=== PATIENT | female | born 1960 | race American Indian/Alaskan Native ===

== ENCOUNTER 2019-05-14 14:11 | Inpatient (IN) | payer BC ==
[2019-05-14] MEDS ORDERED: SODIUM CHLORIDE 0.9% 1000 ML 1,000 ML IV ONE ×2 (14:39→15:54)
[2019-05-14] MEDS ORDERED: ONDANSETRON 4 MG/2 ML INJ IV ONE (14:39)
[2019-05-14 15:05] LABS: Hematocrit 49.1 % (30.3-42.9); Mean Corpuscular HGB Conc 33 % (30-34); Mean Corpuscular Volume 84 fl (79-97); Platelet Count 261 K/mm3 (140-440); Red Blood Count 5.87 M/mm3 (3.65-5.03); Red Cell Distribution Width 15.5 % (13.2-15.2)
--- NOTE | 2019-05-14 15:09 | Emergency Department Report ---
ED General Adult HPI - General Chief complaint: Extremity Injury, Upper Stated complaint: PAIN IN RT HAND/UPSET STOMACH Time Seen by Provider: 05/14/19 14:38 Source: patient Mode of arrival: Ambulatory Limitations: No Limitations, Language Barrier - History of Present Illness Initial comments: Patient is a 58-year-old -L[place]ian female who is presenting with nausea vomiting for the past week. Patient states that she has been unable to keep much down for the last week. Patient states at this point she started to get hand cramping and some hiccups as well. Patient states the nausea and vomiting she has some dry heaves. Patient states unable to keep down her blood pressure medications or her medications for diabetes. - Related Data Allergies Allergy/AdvReac Type Severity Reaction Status Date / Time No Known Allergies Allergy Unverified 05/14/19 14:16 ED Review of Systems ROS: Stated complaint: PAIN IN RT HAND/UPSET STOMACH Other details as noted in HPI Comment: All other systems reviewed and negative ED Past Medical Hx - Past Medical History Hx Diabetes: Yes Additional medical history: hyperlipidemia - Surgical History Past Surgical History?: Yes Additional Surgical History: hysterectomy - Social History Smoking Status: Never Smoker Substance Use Type: Alcohol ED Physical Exam - General Limitations: No Limitations, Language Barrier General appearance: alert, in no apparent distress - Head Head exam: Present: atraumatic, normocephalic - Eye Eye exam: Present: normal appearance, PERRL, EOMI - ENT ENT exam: Present: mucous membranes moist - Neck Neck exam: Present: normal inspection - Respiratory Respiratory exam: Present: normal lung sounds bilaterally. Absent: respiratory distress, wheezes, rales, rhonchi - Cardiovascular Cardiovascular Exam: Present: regular rate, normal rhythm, normal heart sounds. Absent: systolic murmur, diastolic murmur, rubs, gallop - GI/Abdominal GI/Abdominal exam: Present: soft, normal bowel sounds. Absent: distended, tenderness, guarding, rebound, rigid - Extremities Exam Extremities exam: Present: normal inspection - Back Exam Back exam: Present: normal inspection - Neurological Exam Neurological exam: Present: alert, oriented X3 - Psychiatric Psychiatric exam: Present: normal affect, normal mood - Skin Skin exam: Present: warm, dry, intact, normal color. Absent: rash ED Course Vital Signs 05/14/19 05/14/19 14:21 15:10 Temperature 98.0 F Pulse Rate 60 125 H Respiratory 16 21 Rate Blood Pressure 152/113 Blood Pressure 137/93 [Left] O2 Sat by Pulse 100 100 Oximetry ED Medical Decision Making - Lab Data Result diagrams: 05/14/19 14:45 05/14/19 14:45 Lab Results 05/14/19 05/14/19 05/14/19 Range/Units 14:28 14:45 14:45 WBC 7.6 (4.5-11.0) K/mm3 RBC 5.87 H (3.65-5.03) M/mm3 Hgb 16.0 H (10.1-14.3) gm/dl Hct 49.1 H (30.3-42.9) % MCV 84 (79-97) fl MCH 27 L (28-32) pg MCHC 33 (30-34) % RDW 15.5 H (13.2-15.2) % Plt Count 261 (140-440) K/mm3 VBG pH (7.320-7.420) Carbon Dioxide 12 L (22-30) mmol/L BUN 10 (7-17) mg/dL Creatinine 1.1 (0.7-1.2) mg/dL Estimated GFR > 60 ml/min BUN/Creatinine Ratio 9 % Glucose 500 H (65-100) mg/dL POC Glucose 366 H (70-105) Calcium 9.8 (8.4-10.2) mg/dL Total Bilirubin 0.40 (0.1-1.2) mg/dL AST 35 (5-40) units/L ALT 46 (7-56) units/L Alkaline Phosphatase 180 H (35-129) units/L Total Protein 8.6 H (6.3-8.2) g/dL Albumin 4.3 (3.9-5) g/dL Albumin/Globulin Ratio 1.0 % Lipase (13-60) units/L 05/14/19 05/14/19 Range/Units 14:45 15:28 WBC (4.5-11.0) K/mm3 RBC (3.65-5.03) M/mm3 Hgb (10.1-14.3) gm/dl Hct (30.3-42.9) % MCV (79-97) fl MCH (28-32) pg MCHC (30-34) % RDW (13.2-15.2) % Plt Count (140-440) K/mm3 VBG pH 7.226 L (7.320-7.420) Carbon Dioxide (22-30) mmol/L BUN (7-17) mg/dL Creatinine (0.7-1.2) mg/dL Estimated GFR ml/min BUN/Creatinine Ratio % Glucose (65-100) mg/dL POC Glucose (70-105) Calcium (8.4-10.2) mg/dL Total Bilirubin (0.1-1.2) mg/dL AST (5-40) units/L ALT (7-56) units/L Alkaline Phosphatase (35-129) units/L Total Protein (6.3-8.2) g/dL Albumin (3.9-5) g/dL Albumin/Globulin Ratio % Lipase 35 (13-60) units/L Anion gap 29 Na 135 K 3.4 Cl 97.2 - Medical Decision Making Patient with NV and weakness for a week. Patient noted to have early DKA. Started on IV hydration and an insulin drip Critical Care Time: Yes (30) Critical care attestation.: If time is entered above; I have spent that time in minutes in the direct care of this critically ill patient, excluding procedure time. ED Disposition Clinical Impression: Diabetic ketoacidosis Qualifiers: Diabetes mellitus type: type 2 Diabetes mellitus complication detail: without c jin Qualified Code(s): E11.10 - Type 2 diabetes mellitus with ketoacidosis without coma Disposition: 09 OP ADMIT IP TO THIS HOSP Is pt being admited?: Yes Does the pt Need Aspirin: No Condition: Stable Instructions: Diabetic Ketoacidosis (ED) Time of Disposition: 15:59
[2019-05-14 15:13] LABS: Alanine Aminotransferase 46 units/L (7-56); Albumin 4.3 g/dL (3.9-5); BUN/Creatinine Ratio 9; Blood Urea Nitrogen 10 mg/dL (7-17); Calcium 9.8 mg/dL (8.4-10.2); Hemolysis Index 5
[2019-05-14 15:57] LABS: Eosinophils % (Manual) 0 % (0.0-4.3); Giant Platelets 1+; RBC Morphology Normal; Total Cells Counted 100
--- NOTE | 2019-05-14 16:01 | History and Physical Report ---
History of Present Illness Chief complaint: I feel sick History of present illness: 58 YO Female with DM, HLD, presents to ED for evaluation. Pt states that she has experienced nausea, multiple episodes of vomiting over the past 1 week with worsening symptoms over the past 2 days. Pt reports inability to tolerate oral diet or medications by mouth. Pt acknowledges polyuria. Pt transported to [facility] via private vehicle. Pt seen and evaluated in ED and found to have DKA. Pt initiated on DKA protocol and admitted to ICU. Pt denies fever, chills, CP, Palpitations, Trauma, BRBPR, Productive cough, Skin rash, or recent ill contacts. No prior admission for review. No medication listed for reconciliation at time of admission. Past History Past Medical History: diabetes Past Surgical History: No surgical history, Other (reviewed) Social history: , lives with family. denies: smoking, alcohol abuse, prescription drug abuse Family history: diabetes, hypertension Medications and Allergies Allergies Allergy/AdvReac Type Severity Reaction Status Date / Time No Known Allergies Allergy Unverified 05/14/19 14:16 Active Meds: Active Medications Insulin Human Regular 100 (units/ Sodium Chloride) 100 mls @ 1 mls/hr IV TITR MYRA; Protocol Sodium Chloride (Nacl 0.9% 1000 Ml) 1,000 mls @ 999 mls/hr IV BOLUS ONE Stop: 05/14/19 16:54 Review of Systems Constitutional: no weight loss, no weight gain, no fever, no chills Ears, nose, mouth and throat: no ear pain, no ear discharge, no decreased hearing, no nose pain, no nasal discharge, no sinus pressure Breasts: no change in shape, no swelling Cardiovascular: no chest pain, no orthopnea, no palpitations, no rapid/irregular heart beat, no syncope, no lightheadedness Respiratory: no cough, no cough with sputum, no hemoptysis, no shortness of breath Gastrointestinal: nausea, vomiting, no abdominal pain, no hematemesis, no coffee ground emesis, no melena, no loss of appetite, no indigestion Genitourinary Female: no pelvic pain, no flank pain, no menorrhagia, no urinary frequency, no urgency Rectal: no pain, no incontinence Musculoskeletal: no neck stiffness, no neck pain, no shooting arm pain, no low back pain, no shooting leg pain, no leg numbness/tingling Integumentary: no rash, no pruritis, no redness, no sores, no wounds Neurological: no transient paralysis, no paralysis, no weakness, no numbness, no tingling, no seizures Psychiatric: no anxiety, no memory loss, no change in sleep habits, no sleep disturbances, no insomnia, no change in appetite, no change in libido, no suicidal ideation Endocrine: excessive thirst, polyuria, high blood sugars, no cold intolerance, no heat intolerance, no polyphagia Hematologic/Lymphatic: no easy bruising, no easy bleeding, no lymphadenopathy, no lymphedema Allergic/Immunologic: no urticaria, no allergic rhinitis, no anaphylaxis Exam - Constitutional Vitals: Temp Pulse Resp BP Pulse Ox 98.0 F 125 H 21 137/93 100 05/14/19 14:21 05/14/19 15:10 05/14/19 15:10 05/14/19 15:10 05/14/19 15:10 General appearance: Present: mild distress - EENT Eyes: Present: PERRL ENT: hearing intact, clear oral mucosa - Neck Neck: Present: supple, normal ROM - Respiratory Respiratory effort: normal Respiratory: bilateral: CTA - Cardiovascular Heart Sounds: Present: S1 & S2. Absent: rub, click - Extremities Extremities: pulses symmetrical, No edema Peripheral Pulses: within normal limits - Abdominal General gastrointestinal: Present: soft, non-tender, non-distended, normal bowel sounds Female genitourinary: Present: normal - Integumentary Integumentary: Present: clear, warm, dry - Musculoskeletal Musculoskeletal: gait normal, strength equal bilaterally - Psychiatric Psychiatric: appropriate mood/affect, intact judgment & insight - Neurologic Neurologic: CNII-XII intact, moves all extremities Results - Labs CBC & Chem 7: 05/14/19 14:45 05/14/19 14:45 Labs: Abnormal lab results 05/14/19 05/14/19 05/14/19 Range/Units 14:28 14:45 14:45 RBC 5.87 H (3.65-5.03) M/mm3 Hgb 16.0 H (10.1-14.3) gm/dl Hct 49.1 H (30.3-42.9) % MCH 27 L (28-32) pg RDW 15.5 H (13.2-15.2) % Monocytes % (Manual) 11.0 H (0.0-7.3) % VBG pH (7.320-7.420) Carbon Dioxide 12 L (22-30) mmol/L Glucose 500 H (65-100) mg/dL POC Glucose 366 H (70-105) Alkaline Phosphatase 180 H (35-129) units/L Total Protein 8.6 H (6.3-8.2) g/dL 05/14/19 Range/Units 15:28 RBC (3.65-5.03) M/mm3 Hgb (10.1-14.3) gm/dl Hct (30.3-42.9) % MCH (28-32) pg RDW (13.2-15.2) % Monocytes % (Manual) (0.0-7.3) % VBG pH 7.226 L (7.320-7.420) Carbon Dioxide (22-30) mmol/L Glucose (65-100) mg/dL POC Glucose (70-105) Alkaline Phosphatase (35-129) units/L Total Protein (6.3-8.2) g/dL Assessment and Plan - Patient Problems (1) Diabetic ketoacidosis Current Visit: No Status: Acute Qualifiers: Diabetes mellitus type: type 2 Diabetes mellitus complication detail: without coma Qualified Code(s): E11.10 - Type 2 diabetes mellitus with ketoacidosis without coma Plan to address problem: Admit to ICU, DKA Protocol: Insulin drip, IVF resuscitation therapy, serial bmp, monitor anion gap, monitor serum potassium, The high probability of a clinically significant, sudden or life threatening deterioration of the [Endocrine, neuro] system(s) required my full and direct attention, intervention and personal management. The aggregate critical care time was [65] minutes. This time is in addition to time spent performing reported procedures but includes the following: [x] Data Review and interpretation [x] Patient assessment and monitoring of vital signs [x] Documentation [x] Medication orders and management (2) Metabolic acidosis Current Visit: Yes Status: Acute Plan to address problem: IVF resuscitation therapy, Iv bicarbonate therapy, repeat bmp (3) HLD (hyperlipidemia) Current Visit: Yes Status: Acute Qualifiers: Hyperlipidemia type: mixed hyperlipidemia Qualified Code(s): E78.2 - Mixed hyperlipidemia Plan to address problem: low fat, low cholesterol diet (4) DVT prophylaxis Current Visit: Yes Status: Acute Plan to address problem: SCD to BLE while in bed.
[2019-05-14] MEDS ORDERED: SODIUM CHLORIDE 0.9% 1000 ML 1,000 ML IV SCH (17:00)
[2019-05-14] MEDS ORDERED: SODIUM BICARB 8.4% 50 MEQ/50 ML SYRINGE IV ONE (17:00)
[2019-05-14] MEDS: INSULIN REGULAR, HUMAN 100 UNITS in SODIUM CHLORIDE 0.9% 99 ML IV SCH (18:19)
[2019-05-14 22:03] LABS: BUN/Creatinine Ratio 10; Blood Urea Nitrogen 8 mg/dL (7-17); Calcium 8.9 mg/dL (8.4-10.2); Hemolysis Index 9
[2019-05-14] MEDS: D5W/0.45% NACL/KCL 20 MEQ 20 MEQ/1,000 ML BAG IV SCH (22:04)
[2019-05-14] MEDS ORDERED: D5W/0.45% NACL/KCL 20 MEQ 20 MEQ/1,000 ML BAG IV ONE (22:04)
[2019-05-15 04:02] LABS: BUN/Creatinine Ratio 10; Blood Urea Nitrogen 7 mg/dL (7-17); Calcium 8.7 mg/dL (8.4-10.2); Hemolysis Index 8
[2019-05-15] MEDS: D5W/0.45% NACL/KCL 20 MEQ 20 MEQ/1,000 ML BAG IV SCH ×2 (06:15→21:38)
--- NOTE | 2019-05-15 09:32 | Progress Note ---
Assessment and Plan Assessment and plan: Patient is a 58 YO Female with DM, HLD, presents to ED for evaluation. Pt states that she has experienced nausea, multiple episodes of vomiting over the past 1 week with worsening symptoms over the past 2 days. Pt reports inability to tolerate oral diet or medications by mouth. Pt acknowledges polyuria. Pt transported to [facility] via private vehicle. Pt seen and evaluated in ED and found to have DKA. Pt initiated on DKA protocol and admitted to ICU. Pt denies fever, chills, CP, Palpitations, Trauma, BRBPR, Productive cough, Skin rash, or recent ill contacts. No prior admission for review. No medication listed for reconciliation at time of admission. -Diabetic ketoacidosis: treat with IVF, insulin drip -UTI with sepsis, poa: treat with IV abx due to the nausea and inability to tolerate food, follow up urine culture -Nausea/Vomiting, off and on for 2 weeks, has not been taking oral Diabetic medication due to worsening nausea -Metabolic acidosis IVF resuscitation therapy, Iv bicarbonate therapy, repeat bmp -HLD (hyperlipidemia) low fat, low cholesterol diet -DVT prophylaxis: add sq lovenox -Hypokalemia: replace in IVF,monitor bmp closely full code Disposition: continue inpatient care, await repeat BMP, possible transition off insulin drip if Anion gap has closed CCT 33 minutes History Interval history: Patient was seen and examined. Follow-up on current diagnosis of DKA. No overnight events reported to me. Patient denies any chest pain, shortness breath, or severe headaches. Imaging, nursing note, chart, labs and old chart reviewed. Discussed with patient. +Nausea w/o vomiting or pains. Daughter Keira Hospitalist Physical - Physical exam Narrative exam: Gen: WDWN, NAD, Awake, Alert, Orientated HEENT: NCAT, EOM==> left eye outward, PERRL, OP Clear Neck: supple, no adenopathy, no thyromegaly, no JVD CVS/Heart: RRR, normal S1S2, pulses present bilaterally Chest/Lungs: CTA B, Symmetrical chest expansion, good air entry bilaterally GI/Abdomen: soft, NTND, good bowel sounds, no guarding or rebound /Bladder: no suprapubic tenderness, no CVA or paraspinal tenderness Extermity/Skin: no c/c/e, no obvious rash MSK: FROM x 4 Neuro: CN 2-12 grossly intact, no new focal deficits Psych: calm - Constitutional Vitals: Temp Pulse Resp BP Pulse Ox 98.0 F 81 14 105/66 98 05/14/19 14:21 05/15/19 07:24 05/15/19 07:24 05/15/19 07:24 05/15/19 07:24 Results - Labs CBC & Chem 7: 05/14/19 14:45 05/15/19 03:22 Labs: Laboratory Last Values WBC 7.6 K/mm3 (4.5-11.0) 05/14/19 14:45 RBC 5.87 M/mm3 (3.65-5.03) H 05/14/19 14:45 Hgb 16.0 gm/dl (10.1-14.3) H 05/14/19 14:45 Hct 49.1 % (30.3-42.9) H 05/14/19 14:45 MCV 84 fl (79-97) 05/14/19 14:45 MCH 27 pg (28-32) L 05/14/19 14:45 MCHC 33 % (30-34) 05/14/19 14:45 RDW 15.5 % (13.2-15.2) H 05/14/19 14:45 Plt Count 261 K/mm3 (140-440) 05/14/19 14:45 Add Manual Diff Complete 05/14/19 14:45 Total Counted 100 05/14/19 14:45 Seg Neuts % (Manual) 54.0 % (40.0-70.0) 05/14/19 14:45 Band Neutrophils % 0 % 05/14/19 14:45 Lymphocytes % (Manual) 34.0 % (13.4-35.0) 05/14/19 14:45 Reactive Lymphs % (Man) 0 % 05/14/19 14:45 Monocytes % (Manual) 11.0 % (0.0-7.3) H 05/14/19 14:45 Eosinophils % (Manual) 0 % (0.0-4.3) 05/14/19 14:45 Basophils % (Manual) 1.0 % (0.0-1.8) 05/14/19 14:45 Metamyelocytes % 0 % 05/14/19 14:45 Myelocytes % 0 % 05/14/19 14:45 Promyelocytes % 0 % 05/14/19 14:45 Blast Cells % 0 % 05/14/19 14:45 Nucleated RBC % Not Reportable 05/14/19 14:45 Seg Neutrophils # Man 4.1 K/mm3 (1.8-7.7) 05/14/19 14:45 Band Neutrophils # 0.0 K/mm3 05/14/19 14:45 Lymphocytes # (Manual) 2.6 K/mm3 (1.2-5.4) 05/14/19 14:45 Abs React Lymphs (Man) 0.0 K/mm3 05/14/19 14:45 Monocytes # (Manual) 0.8 K/mm3 (0.0-0.8) 05/14/19 14:45 Eosinophils # (Manual) 0.0 K/mm3 (0.0-0.4) 05/14/19 14:45 Basophils # (Manual) 0.1 K/mm3 (0.0-0.1) 05/14/19 14:45 Metamyelocytes # 0.0 K/mm3 05/14/19 14:45 Myelocytes # 0.0 K/mm3 05/14/19 14:45 Promyelocytes # 0.0 K/mm3 05/14/19 14:45 Blast Cells # 0.0 K/mm3 05/14/19 14:45 WBC Morphology Not Reportable 05/14/19 14:45 Hypersegmented Neuts Not Reportable 05/14/19 14:45 Hyposegmented Neuts Not Reportable 05/14/19 14:45 Hypogranular Neuts Not Reportable 05/14/19 14:45 Smudge Cells Not Reportable 05/14/19 14:45 Toxic Granulation Not Reportable 05/14/19 14:45 Toxic Vacuolation Not Reportable 05/14/19 14:45 Dohle Bodies Not Reportable 05/14/19 14:45 Pelger-Huet Anomaly Not Reportable 05/14/19 14:45 Ezra Rods Not Reportable 05/14/19 14:45 Platelet Estimate Not Reportable 05/14/19 14:45 Clumped Platelets Not Reportable 05/14/19 14:45 Plt Clumps, EDTA Not Reportable 05/14/19 14:45 Large Platelets Not Reportable 05/14/19 14:45 Giant Platelets 1+ 05/14/19 14:45 Platelet Satelliting Not Reportable 05/14/19 14:45 Plt Morphology Comment Not Reportable 05/14/19 14:45 RBC Morphology Normal 05/14/19 14:45 Dimorphic RBCs Not Reportable 05/14/19 14:45 Polychromasia Not Reportable 05/14/19 14:45 Hypochromasia Not Reportable 05/14/19 14:45 Poikilocytosis Not Reportable 05/14/19 14:45 Anisocytosis Not Reportable 05/14/19 14:45 Microcytosis Not Reportable 05/14/19 14:45 Macrocytosis Not Reportable 05/14/19 14:45 Spherocytes Not Reportable 05/14/19 14:45 Pappenheimer Bodies Not Reportable 05/14/19 14:45 Sickle Cells Not Reportable 05/14/19 14:45 Target Cells Not Reportable 05/14/19 14:45 Tear Drop Cells Not Reportable 05/14/19 14:45 Ovalocytes Not Reportable 05/14/19 14:45 Helmet Cells Not Reportable 05/14/19 14:45 [place] Bodies Not Reportable 05/14/19 14:45 [place] Rings Not Reportable 05/14/19 14:45 [place] Cells Not Reportable 05/14/19 14:45 Bite Cells Not Reportable 05/14/19 14:45 Crenated Cell Not Reportable 05/14/19 14:45 Elliptocytes Not Reportable 05/14/19 14:45 Acanthocytes (Spur) Not Reportable 05/14/19 14:45 Rouleaux Not Reportable 05/14/19 14:45 Hemoglobin C Crystals Not Reportable 05/14/19 14:45 Schistocytes Not Reportable 05/14/19 14:45 Malaria parasites Not Reportable 05/14/19 14:45 Aramis Bodies Not Reportable 05/14/19 14:45 Hem Pathologist Commnt No 05/14/19 14:45 VBG pH 7.226 (7.320-7.420) L 05/14/19 15:28 Sodium 139 mmol/L (137-145) 05/15/19 03:22 Potassium 3.2 mmol/L (3.6-5.0) L D 05/15/19 03:22 Chloride 110.5 mmol/L (98-107) H 05/15/19 03:22 Carbon Dioxide 15 mmol/L (22-30) L 05/15/19 03:22 Anion Gap 17 mmol/L 05/15/19 03:22 BUN 7 mg/dL (7-17) 05/15/19 03:22 Creatinine 0.7 mg/dL (0.7-1.2) 05/15/19 03:22 Estimated GFR > 60 ml/min 05/15/19 03:22 BUN/Creatinine Ratio 10 % 05/15/19 03:22 Glucose 147 mg/dL (65-100) H 05/15/19 03:22 POC Glucose 134 (70-105) H 05/15/19 09:28 Calcium 8.7 mg/dL (8.4-10.2) 05/15/19 03:22 Total Bilirubin 0.40 mg/dL (0.1-1.2) 05/14/19 14:45 AST 35 units/L (5-40) 05/14/19 14:45 ALT 46 units/L (7-56) 05/14/19 14:45 Alkaline Phosphatase 180 units/L (35-129) H 05/14/19 14:45 Total Protein 8.6 g/dL (6.3-8.2) H 05/14/19 14:45 Albumin 4.3 g/dL (3.9-5) 05/14/19 14:45 Albumin/Globulin Ratio 1.0 % 05/14/19 14:45 Lipase 35 units/L (13-60) 05/14/19 14:45 Active Medications - Current Medications Current Medications: Generic Name Dose Route Start Last Admin Trade Name Freq PRN Reason Stop Dose Admin Insulin Human Regular 100 100 mls @ 1 mls/hr 05/14/19 16:00 05/15/19 08:12 units/ Sodium Chloride IV 2 units/hr TITR MYRA 2 mls/hr Titration Protocol 1 UNITS/HR Sodium Chloride 1,000 mls @ 100 mls/hr 05/14/19 17:00 Nacl 0.9% 1000 Ml IV DIRECT MYRA Potassium Chloride/Dextrose/Sod Cl 20 meq in 1,000 mls @ 125 mls/hr 05/14/19 22:00 05/15/19 06:15 D5w/0.45% Nacl/Kcl 20 Meq IV 125 mls/hr DIRECT MYRA Administration Sodium Chloride 10 ml 05/14/19 22:00 05/14/19 23:22 Sodium Chloride Flush Syringe 10 Ml IV 10 ml BID MYRA Administration Sodium Chloride 10 ml 05/14/19 16:01 Sodium Chloride Flush Syringe 10 Ml IV PRN PRN LINE FLUSH
[2019-05-15 10:49] LABS: Bacteria,Urine 2+ /HPF (Negative); Bilirubin,Urine NEG (Negative); Blood,Urine SM (Negative); Color,Urine Yellow (Yellow); Hyaline Casts,Urine 17 /LPF; Mucus,Urine 2+ /HPF
[2019-05-15 11:49] LABS: BUN/Creatinine Ratio 10; Blood Urea Nitrogen 7 mg/dL (7-17); Hemolysis Index 24
[2019-05-15 19:46] LABS: BUN/Creatinine Ratio 9; Blood Urea Nitrogen 6 mg/dL (7-17); Calcium 9.3 mg/dL (8.4-10.2); Hemolysis Index 3
[2019-05-15] MEDS: POTASSIUM CHLORIDE 10 MEQ 10 MEQ/100 ML BAG IV SCH ×3 (20:38→23:00)
[2019-05-15] MEDS ORDERED: POTASSIUM CHLORIDE 10 MEQ 10 MEQ/100 ML BAG IV ONE (20:38)
[2019-05-15] MEDS: INSULIN REGULAR, HUMAN 100 UNITS in SODIUM CHLORIDE 0.9% 99 ML IV SCH (23:02)
[2019-05-16] MEDS: POTASSIUM CHLORIDE 10 MEQ 10 MEQ/100 ML BAG IV SCH (00:56)
[2019-05-16 06:16] LABS: BUN/Creatinine Ratio 6; Blood Urea Nitrogen 4 mg/dL (7-17); Calcium 9.2 mg/dL (8.4-10.2); Hemolysis Index 13
--- NOTE | 2019-05-16 07:41 | Progress Note ---
Assessment and Plan Assessment and plan: Patient is a 58 YO Female with DM, HLD, presents to ED for evaluation. Pt states that she has experienced nausea, multiple episodes of vomiting over the past 1 week with worsening symptoms over the past 2 days. Pt reports inability to tolerate oral diet or medications by mouth. Pt acknowledges polyuria. Pt transported to [facility] via private vehicle. Pt seen and evaluated in ED and found to have DKA. Pt initiated on DKA protocol and admitted to ICU. Pt denies fever, chills, CP, Palpitations, Trauma, BRBPR, Productive cough, Skin rash, or recent ill contacts. No prior admission for review. No medication listed for reconciliation at time of admission. -Diabetic ketoacidosis resolved, anion gap closed: transition to basal/bolus regimen, -UTI with sepsis, poa: treat with IV abx due to the nausea and inability to tolerate food, follow up urine culture (received specimen) -Nausea/Vomiting, off and on for 2 weeks, has not been taking oral Diabetic medication due to worsening nausea, reason for the DKA +UTI, treat with iv ant iemetic -Metabolic acidosis: treat the DKA -HLD (hyperlipidemia) low fat, low cholesterol diet -DVT prophylaxis: on sq heparin -Hypokalemia: replete and recheck in AM full code Disposition: continue inpatient care, possible discharge tomorrow if blood glucose stable transfer out ICU if able to tolerate food CCT 32 minutes History Interval history: Patient was seen and examined. Follow-up on current diagnosis of DKA. No overnight events reported to me. Patient denies any chest pain, shortness breath, or severe headaches. Imaging, nursing note, chart, labs and old chart reviewed. Discussed with patient. +Nausea w/o vomiting or pains. Daughter Keira Hospitalist Physical - Physical exam Narrative exam: Gen: WDWN, NAD, Awake, Alert, Orientated HEENT: NCAT, EOM==> left eye outward, PERRL, OP Clear Neck: supple, no adenopathy, no thyromegaly, no JVD CVS/Heart: RRR, normal S1S2, pulses present bilaterally Chest/Lungs: CTA B, Symmetrical chest expansion, good air entry bilaterally GI/Abdomen: soft, NTND, good bowel sounds, no guarding or rebound /Bladder: no suprapubic tenderness, no CVA or paraspinal tenderness Extermity/Skin: no c/c/e, no obvious rash MSK: FROM x 4 Neuro: CN 2-12 grossly intact, no new focal deficits Psych: calm - Constitutional Vitals: Temp Pulse Resp BP Pulse Ox 98.3 F 98 H 15 111/73 99 05/16/19 04:00 05/16/19 07:30 05/16/19 07:30 05/16/19 07:30 05/16/19 07:30 Results - Labs CBC & Chem 7: 05/14/19 14:45 05/16/19 05:30 Labs: Laboratory Last Values WBC 7.6 K/mm3 (4.5-11.0) 05/14/19 14:45 RBC 5.87 M/mm3 (3.65-5.03) H 05/14/19 14:45 Hgb 16.0 gm/dl (10.1-14.3) H 05/14/19 14:45 Hct 49.1 % (30.3-42.9) H 05/14/19 14:45 MCV 84 fl (79-97) 05/14/19 14:45 MCH 27 pg (28-32) L 05/14/19 14:45 MCHC 33 % (30-34) 05/14/19 14:45 RDW 15.5 % (13.2-15.2) H 05/14/19 14:45 Plt Count 261 K/mm3 (140-440) 05/14/19 14:45 Add Manual Diff Complete 05/14/19 14:45 Total Counted 100 05/14/19 14:45 Seg Neuts % (Manual) 54.0 % (40.0-70.0) 05/14/19 14:45 Band Neutrophils % 0 % 05/14/19 14:45 Lymphocytes % (Manual) 34.0 % (13.4-35.0) 05/14/19 14:45 Reactive Lymphs % (Man) 0 % 05/14/19 14:45 Monocytes % (Manual) 11.0 % (0.0-7.3) H 05/14/19 14:45 Eosinophils % (Manual) 0 % (0.0-4.3) 05/14/19 14:45 Basophils % (Manual) 1.0 % (0.0-1.8) 05/14/19 14:45 Metamyelocytes % 0 % 05/14/19 14:45 Myelocytes % 0 % 05/14/19 14:45 Promyelocytes % 0 % 05/14/19 14:45 Blast Cells % 0 % 05/14/19 14:45 Nucleated RBC % Not Reportable 05/14/19 14:45 Seg Neutrophils # Man 4.1 K/mm3 (1.8-7.7) 05/14/19 14:45 Band Neutrophils # 0.0 K/mm3 05/14/19 14:45 Lymphocytes # (Manual) 2.6 K/mm3 (1.2-5.4) 05/14/19 14:45 Abs React Lymphs (Man) 0.0 K/mm3 05/14/19 14:45 Monocytes # (Manual) 0.8 K/mm3 (0.0-0.8) 05/14/19 14:45 Eosinophils # (Manual) 0.0 K/mm3 (0.0-0.4) 05/14/19 14:45 Basophils # (Manual) 0.1 K/mm3 (0.0-0.1) 05/14/19 14:45 Metamyelocytes # 0.0 K/mm3 05/14/19 14:45 Myelocytes # 0.0 K/mm3 05/14/19 14:45 Promyelocytes # 0.0 K/mm3 05/14/19 14:45 Blast Cells # 0.0 K/mm3 05/14/19 14:45 WBC Morphology Not Reportable 05/14/19 14:45 Hypersegmented Neuts Not Reportable 05/14/19 14:45 Hyposegmented Neuts Not Reportable 05/14/19 14:45 Hypogranular Neuts Not Reportable 05/14/19 14:45 Smudge Cells Not Reportable 05/14/19 14:45 Toxic Granulation Not Reportable 05/14/19 14:45 Toxic Vacuolation Not Reportable 05/14/19 14:45 Dohle Bodies Not Reportable 05/14/19 14:45 Pelger-Huet Anomaly Not Reportable 05/14/19 14:45 Ezra Rods Not Reportable 05/14/19 14:45 Platelet Estimate Not Reportable 05/14/19 14:45 Clumped Platelets Not Reportable 05/14/19 14:45 Plt Clumps, EDTA Not Reportable 05/14/19 14:45 Large Platelets Not Reportable 05/14/19 14:45 Giant Platelets 1+ 05/14/19 14:45 Platelet Satelliting Not Reportable 05/14/19 14:45 Plt Morphology Comment Not Reportable 05/14/19 14:45 RBC Morphology Normal 05/14/19 14:45 Dimorphic RBCs Not Reportable 05/14/19 14:45 Polychromasia Not Reportable 05/14/19 14:45 Hypochromasia Not Reportable 05/14/19 14:45 Poikilocytosis Not Reportable 05/14/19 14:45 Anisocytosis Not Reportable 05/14/19 14:45 Microcytosis Not Reportable 05/14/19 14:45 Macrocytosis Not Reportable 05/14/19 14:45 Spherocytes Not Reportable 05/14/19 14:45 Pappenheimer Bodies Not Reportable 05/14/19 14:45 Sickle Cells Not Reportable 05/14/19 14:45 Target Cells Not Reportable 05/14/19 14:45 Tear Drop Cells Not Reportable 05/14/19 14:45 Ovalocytes Not Reportable 05/14/19 14:45 Helmet Cells Not Reportable 05/14/19 14:45 Hatfield-Paulina Bodies Not Reportable 05/14/19 14:45 Leary Rings Not Reportable 05/14/19 14:45 Jerome Cells Not Reportable 05/14/19 14:45 Bite Cells Not Reportable 05/14/19 14:45 Crenated Cell Not Reportable 05/14/19 14:45 Elliptocytes Not Reportable 05/14/19 14:45 Acanthocytes (Spur) Not Reportable 05/14/19 14:45 Rouleaux Not Reportable 05/14/19 14:45 Hemoglobin C Crystals Not Reportable 05/14/19 14:45 Schistocytes Not Reportable 05/14/19 14:45 Malaria parasites Not Reportable 05/14/19 14:45 Aramis Bodies Not Reportable 05/14/19 14:45 Hem Pathologist Commnt No 05/14/19 14:45 VBG pH 7.226 (7.320-7.420) L 05/14/19 15:28 Sodium 140 mmol/L (137-145) 05/16/19 05:30 Potassium 3.3 mmol/L (3.6-5.0) L 05/16/19 05:30 Chloride 110.5 mmol/L (98-107) H 05/16/19 05:30 Carbon Dioxide 16 mmol/L (22-30) L 05/16/19 05:30 Anion Gap 17 mmol/L 05/16/19 05:30 BUN 4 mg/dL (7-17) L 05/16/19 05:30 Creatinine 0.7 mg/dL (0.7-1.2) 05/16/19 05:30 Estimated GFR > 60 ml/min 05/16/19 05:30 BUN/Creatinine Ratio 6 % 05/16/19 05:30 Glucose 161 mg/dL (65-100) H 05/16/19 05:30 POC Glucose 122 (70-105) H 05/16/19 06:48 Calcium 9.2 mg/dL (8.4-10.2) 05/16/19 05:30 Total Bilirubin 0.40 mg/dL (0.1-1.2) 05/14/19 14:45 AST 35 units/L (5-40) 05/14/19 14:45 ALT 46 units/L (7-56) 05/14/19 14:45 Alkaline Phosphatase 180 units/L (35-129) H 05/14/19 14:45 Total Protein 8.6 g/dL (6.3-8.2) H 05/14/19 14:45 Albumin 4.3 g/dL (3.9-5) 05/14/19 14:45 Albumin/Globulin Ratio 1.0 % 05/14/19 14:45 Lipase 35 units/L (13-60) 05/14/19 14:45 Urine Color Yellow (Yellow) 05/15/19 10:23 Urine Turbidity Cloudy (Clear) 05/15/19 10:23 Urine pH 6.0 (5.0-7.0) 05/15/19 10:23 Ur Specific [place] 1.017 (1.003-1.030) 05/15/19 10:23 Urine Protein 100 mg/dl mg/dL (Negative) 05/15/19 10:23 Urine Glucose (UA) 50 mg/dL (Negative) 05/15/19 10:23 Urine Ketones 20 mg/dL (Negative) 05/15/19 10:23 Urine Blood Sm (Negative) 05/15/19 10:23 Urine Nitrite Neg (Negative) 05/15/19 10:23 Urine Bilirubin Neg (Negative) 05/15/19 10:23 Urine Urobilinogen 2.0 mg/dL (<2.0) 05/15/19 10:23 Ur Leukocyte Esterase Sm (Negative) 05/15/19 10:23 Urine WBC (Auto) 12.0 /HPF (0.0-6.0) H 05/15/19 10:23 Urine RBC (Auto) 8.0 /HPF (0.0-6.0) 05/15/19 10:23 U Epithel Cells (Auto) 8.0 /HPF (0-13.0) 05/15/19 10:23 Urine Bacteria (Auto) 2+ /HPF (Negative) 05/15/19 10:23 Hyaline Casts 17 /LPF 05/15/19 10:23 Urine Mucus 2+ /HPF 05/15/19 10:23 Active Medications - Current Medications Current Medications: Generic Name Dose Route Start Last Admin Trade Name Freq PRN Reason Stop Dose Admin Dextrose 50 ml 05/16/19 07:34 D50w (25gm) Syringe IV Q30MIN PRN Hypoglycemia Protocol Heparin Sodium (Porcine) 5,000 unit 05/16/19 10:00 Heparin SUB-Q Q12HR [facility] Levofloxacin/Dextrose 500 mg in 100 mls @ 100 mls/hr 05/15/19 12:00 05/15/19 16:27 Levaquin 500mg/100ml IV 100 mls/hr Q24H MYRA Administration Protocol Insulin Glargine 8 units 05/16/19 07:33 Lantus SUB-Q 05/16/19 07:34 ONCE ONE Insulin Human Lispro 0 unit 05/16/19 11:30 Humalog SUB-Q ACHS [facility] Protocol Potassium Chloride 40 meq 05/16/19 07:32 K-Dur PO 05/16/19 07:33 ONCE ONE Sodium Chloride 10 ml 05/14/19 22:00 05/16/19 02:56 Sodium Chloride Flush Syringe 10 Ml IV 10 ml BID MYRA Administration Sodium Chloride 10 ml 05/14/19 16:01 Sodium Chloride Flush Syringe 10 Ml IV PRN PRN LINE FLUSH
[2019-05-16] MEDS ORDERED: METOCLOPRAMIDE 10 MG/2 ML INJ IV PRN (07:43)
[2019-05-16] MEDS ORDERED: ACETAMINOPHEN 325 MG TAB PO PRN (07:43)
[2019-05-16] MEDS ORDERED: DEXTROSE 50% IN WATER (25GM) 50 ML SYRINGE IV PRN (08:00)
[2019-05-16] MEDS ORDERED: INSULIN GLARGINE 100 UNITS/ML SUB-Q ONE (08:30)
[2019-05-16] MEDS ORDERED: POTASSIUM CHLORIDE ER 20 MEQ TAB PO ONE (09:00)
[2019-05-16] MEDS: HEPARIN 5,000 UNIT/1 ML VIAL SUB-Q SCH ×2 (09:01→21:42)
[2019-05-16] MEDS: PANTOPRAZOLE 40 MG TAB PO SCH (09:01)
[2019-05-16] MEDS ORDERED: ONDANSETRON 4 MG/2 ML INJ IV PRN (10:28)
[2019-05-16] MEDS: INSULIN LISPRO 100 UNIT/ML SUB-Q SCH ×3 (12:46→21:50)
[2019-05-17 06:51] VITALS: BP 105/79
[2019-05-17 07:30] LABS: Hematocrit 39.2 % (30.3-42.9); Hemoglobin 13.1 gm/dl (10.1-14.3); Mean Corpuscular HGB Conc 33 % (30-34); Mean Corpuscular Volume 82 fl (79-97); Red Blood Count 4.81 M/mm3 (3.65-5.03); Red Cell Distribution Width 14.9 % (13.2-15.2)
[2019-05-17 07:54] LABS: BUN/Creatinine Ratio 5; Blood Urea Nitrogen 3 mg/dL (7-17); Calcium 9.1 mg/dL (8.4-10.2); Hemolysis Index 86
[2019-05-17 08:32] LABS: Platelet Count 157 K/mm3 (140-440)
[2019-05-17] MEDS ORDERED: metFORMIN 500 MG TAB PO SCH (08:45)
[2019-05-17] MEDS ORDERED: SODIUM CHLORIDE 0.9% 1000 ML 1,000 ML IV ONE (08:45)
[2019-05-17] MEDS: INSULIN LISPRO 100 UNIT/ML SUB-Q SCH ×2 (08:46→12:45)
[2019-05-17] MEDS ORDERED: MAGNESIUM SULFATE 1 GM in SODIUM CHLORIDE 0.9% 50 ML IV ONE (09:30)
[2019-05-17] MEDS: HEPARIN 5,000 UNIT/1 ML VIAL SUB-Q SCH (10:11)
[2019-05-17] MEDS: PANTOPRAZOLE 40 MG TAB PO SCH (10:11)
--- NOTE | 2019-05-17 10:53 | Discharge Summary ---
Providers - Providers Date of Admission: 05/14/19 16:04 Attending physician: ABEL WILSON MD Primary care physician: [employer] Hospitalization Reason for admission: DKA Condition: Stable Hospital course: Patient is a 58 YO Female with DM, HLD, presents to ED for evaluation. Pt states that she has experienced nausea, multiple episodes of vomiting over the past 1 week with worsening symptoms over the past 2 days. Pt reports inability to tolerate oral diet or medications by mouth. Pt acknowledges polyuria. Pt transported to [facility] via private vehicle. Pt seen and evaluated in ED and found to have DKA. Pt initiated on DKA protocol and admitted to ICU. Pt denies fever, chills, CP, Palpitations, Trauma, BRBPR, Productive cough, Skin rash, or recent ill contacts. No prior admission for review. No medication listed for reconciliation at time of admission. Managment as clearly documented below -Diabetic ketoacidosis resolved, anion gap closed: transition to basal/bolus regimen, especially discussion with the patient will also discharge the patient on insulin regimen to use in addition to the metformin -UTI with sepsis, poa: treated with IV abx due to the nausea and inability to tolerate food, follow up urine culture (received specimen) -Nausea/Vomiting, off and on for 2 weeks, has not been taking oral Diabetic medication due to worsening nausea, reason for the DKA +UTI, treat with iv antiemetic -Metabolic acidosis: corrected with treatment for dKA -HLD (hyperlipidemia) low fat, low cholesterol diet -Hypokalemia: repleated Disposition: DC-01 TO HOME OR SELFCARE Time spent for discharge: 35 mins Core Measure Documentation - Palliative Care Palliative Care/ Comfort Measures: Not Applicable - Core Measures Any of the following diagnoses?: none Exam - Physical Exam Narrative exam: VITAL SIGNS: Reviewed. GENERAL: The patient appears normally developed, Vital signs as documented. HEAD: No signs of head trauma. EYES: Pupils are equal. Extraocular motions intact. EARS: Hearing grossly intact. MOUTH: Oropharynx is normal. NECK: No adenopathy, no JVD. CHEST: Chest with clear breath sounds bilaterally. No wheezes, rales, or rhonchi. CARDIAC: Regular rate and rhythm. S1 and S2, without murmurs, gallops, or rubs. VASCULAR: No Edema. Peripheral pulses normal and equal in all extremities. ABDOMEN: Soft, non tender and non distended. No rebound or guarding, and no masses palpated. Bowel Sounds normal. MUSCULOSKELETAL: Good range of motion of all major joints. Extremities without clubbing, cyanosis or edema. NEUROLOGIC EXAM: Alert and oriented x 3 No focal sensory or strength deficits. Speech normal. Follows commands. PSYCHIATRIC: Mood normal. SKIN: detial exam as documented in skin assessment - Constitutional Vitals: Temp Pulse Resp BP Pulse Ox 98.0 F 106 H 20 105/79 99 05/17/19 05:41 05/17/19 05:41 05/17/19 05:41 05/17/19 05:41 05/17/19 05:41 Plan Activity: advance as tolerated, fall precautions Diet: diabetic Special Instructions: record daily BP diary, record blood sugar diary Care Plan Goals: better controlled DM Plan of Treatment: Insulin sliding scale added Health Concerns: DM complications Assessment: Good outcome with compliance Follow up with: PRIMARY CARE,MD [Primary Care Provider] - 7 Days Prescriptions: Insulin Regular, Human [HumuLIN R] 0 unit SQ AC #1 vial Pantoprazole [Protonix TAB] 40 mg PO QDAY #30 tablet Ondansetron [Zofran Odt] 4 mg PO Q8HR #30 tab.rapdis Other Discharge Orders: Glucometer (Amb) Location: None Selected Glucometer supplies[Amb] Location: None Selected
== END 2019-05-17 13:24 | disposition home or self-care (01) | DRG 871 ==
LOC: ED 14:11 → CC1 16:04 → 3A 05-16 10:23
PROVIDERS: ADMIT Internal Medicine; ATTEND Internal Medicine
DX: A41.9 Sepsis, unspecified organism (principal); E11.10 Type 2 diabetes mellitus with ketoacidosis without coma; N39.0 Urinary tract infection, site not specified; E78.2 Mixed hyperlipidemia; E87.6 Hypokalemia; Z90.710 Acquired absence of both cervix and uterus; Z82.49 Family history of ischemic heart disease and other diseases of the circulatory system; Z83.3 Family history of diabetes mellitus; Z79.4 Long term (current) use of insulin
CPT/HCPCS: 36415; 80048; 80053; 81001; 82805; 82962; 83690; 83735; 85007; 85025; 85027; 87086; G0378; J1644; J1815; J1956; J2405; J3475; J3480; J7030